=== PATIENT | female | born 1975 | race Caucasian/White ===

== ENCOUNTER 2024-07-14 04:17 | Emergency (ER) | payer MEDICAID ==
[~2024-07-14] VITALS: Ht 172.7 cm; Wt 75.0 kg
[2024-07-14 04:23] VITALS: TEMP 97.9
[2024-07-14 04:39] VITALS: BP 171/66; PULSE 98; RESP 20; O2SAT 100
[2024-07-14] MEDS ORDERED: CEPH-558 PO (04:45)
[2024-07-14] MEDS ORDERED: NYST30CR9 TP (04:45)
[2024-07-14] MEDS: TraMADol HCL 50 MG TABLET PO ONE (04:47)
== END 2024-07-14 05:19 | disposition home or self-care (01) ==
LOC: EMS 04:19
DX: L03.012 Cellulitis of left finger (principal); L30.4 Erythema intertrigo; Z98.890 Other specified postprocedural states
CPT/HCPCS: 10060; 99283